=== PATIENT | male | born 1970 | race Caucasian/White ===

== ENCOUNTER 2019-08-01 07:55 | Day surgery (SDC) | payer OTHER ==
[~2019-08-01] VITALS: Ht 185.4 cm; Wt 104.3 kg
[2019-08-01] MEDS ORDERED: HYDROCODON-ACE1 EA10 PO (09:36)
--- NOTE | 2019-08-01 09:58 | NUR ---
08/01/19 0958 Margy Yuan 0940- PT ARRIVES TO PACU EASILY AROUSABLE TO VERBAL STIMULI. RESP EVEN AND UNLABORED. OXYGEN SAT HIGH 90'S TO 100% ON 6L VIA MASK. PT REPORTS NO PAIN OR NAUSEA. 0948- OXYGEN TITRATED OFF. 0956- PT GIVEN ICE WATER PER HIS REQUEST. PT TOLERATING WELL. ICE PACK APPLIED TO PT'S RIGHT WRIST.
--- NOTE | 2019-08-01 10:30 | OR ---
[facility] [address] [place], [place] [address] Signed DATE OF OPERATION: 08/01/2019 SURGEON: Phil Vega MD PREOPERATIVE DIAGNOSIS: Right carpal tunnel syndrome. POSTOPERATIVE DIAGNOSIS: Right carpal tunnel syndrome. PROCEDURE PERFORMED: Right carpal tunnel release. ASSISTANT SALES DIRECTOR: None. ANESTHESIA: [place] block. TOURNIQUET TIME: 20 minutes. BRIEF HISTORY: Hermann is a 49-year-old gentleman with pain and numbness in his hand and nerve conduction studies consistent with significant carpal tunnel. Risks and benefits of operative versus nonoperative treatment were discussed with him and he elected to proceed with surgery. Once consent was obtained, he was taken to the operating room and after adequate anesthesia, he was placed on the operating room table. All downside pressure points were well padded. The right arm was prepped and draped in a standard sterile fashion. The carpal tunnel was approached through a 1.5 cm incision in the distal wrist crease, carried through skin and subcutaneous tissue. Palmaris longus was identified, retracted and protected. The transverse carpal ligament was then identified under loupe magnification. It was dissected free of overlying soft tissue proximally and distally. It was then released using a tenotomy scissors approximately 1 cm distally to the distal extent under direct loupe magnification. The canal was then palpated using the [place] and found to be completely released. The wound was copiously irrigated with solution with normal saline, and closed using 3-0 nylon. Injected 4 mL of 0.25% plain Marcaine at the end of the procedure. Wound was dressed with bacitracin, Adaptic, 4 x 8s, and gauze. He tolerated the procedure well. All sponge, needle, and instrument counts were correct. Electronically Signed By: PHIL VEGA MD 08/01/19 1030 PATIENT NAME: HERMANN MARCUM OPERATIVE REPORT DATE OF : 68 REPORT #: [id number] PHYSICIAN: PHIL VEGA MD PCP: QUENTIN SULLIVAN MD REPORT IS CONFIDENTIAL AND NOT TO BE RELEASED WITHOUT AUTHORIZATION [address] [place], [place] [address] Signed Phil Vega MD BA/MODL /[id number] Copies: ~ Electronically Signed By: PHIL VEGA MD 08/01/19 1030 PATIENT NAME: HERMANN MARCUM OPERATIVE REPORT DATE OF : 68 REPORT #: [id number] PHYSICIAN: PHIL VEGA MD PCP: QUENTIN SULLIVAN MD REPORT IS CONFIDENTIAL AND NOT TO BE RELEASED WITHOUT AUTHORIZATION
== END 2019-08-01 10:30 | disposition home or self-care (01) ==
LOC: DS 07:55
PROVIDERS: Specialist
PROC: 01N50ZZ Release Median Nerve, Open Approach (ICD-10-PCS; principal; 2019-08-01 09:00)
DX: G56.01 Carpal tunnel syndrome, right upper limb (principal)
CPT/HCPCS: 01810; J0690; J1100; J1885; J2250; J2405; J2704; J2765; J3010; J7121

== ENCOUNTER 2024-02-20 05:43 | Day surgery (SDC) | payer OTHER ==
[2024-02-13 11:26] VITALS: BP 150/90
[~2024-02-20] VITALS: Ht 185.4 cm; Wt 104.5 kg
[~2024-02-20 05:43] MED LIST: DOXYCYCLINE HY100 MG PO; HYDROCODON-ACE1 EA10 PO; LACTATED RINGER'S 1,000 ML IV SCH
[2024-02-20 05:56] VITALS: BP 142/94
[2024-02-20] MEDS ORDERED: DEXAMETHASONE SOD PHOS 4 MG/ML VIAL ONE ×2 (06:17→06:44)
[2024-02-20] MEDS ORDERED: fentaNYL citrate 100 MCG/2 ML VIAL ONE (06:44)
[2024-02-20] MEDS ORDERED: FAMOTIDINE 20 MG/ 2 ML VIAL ONE (06:44)
[2024-02-20] MEDS ORDERED: MIDAZOLAM HCL 2 MG/2 ML VIAL ONE (06:44)
[2024-02-20] MEDS ORDERED: LACTATED RINGER'S 1,000 ML IV ONE (06:44)
[2024-02-20] MEDS ORDERED: KETOROLAC TROMETHAMINE 30 MG/ML VIAL ONE (06:44)
[2024-02-20] MEDS ORDERED: ondansetron HCL 4 MG/2 ML VIAL ONE (06:44)
[2024-02-20] MEDS ORDERED: METOCLOPRAMIDE HCL 10 MG/2 ML SDV ONE (06:44)
[2024-02-20] MEDS ORDERED: propofoL 200 MG/20 ML VIAL ONE (06:44)
[2024-02-20] MEDS ORDERED: LIDOCAINE HCL 1% 5 ML SDV INJ ONE (07:00)
[2024-02-20] MEDS ORDERED: IBLOOD GLUCOSE TEST STRIP 1 EA TEST VI PRN ×2 (07:00→07:45)
[2024-02-20] MEDS ORDERED: CEFAZOLIN SODIUM 1 GM/10 ML SYR IV SCH (07:00)
[2024-02-20] MEDS ORDERED: PROCHLORPERAZINE EDISYLATE 10 MG/2 ML VIAL IV PRN (07:45)
[2024-02-20] MEDS ORDERED: fentaNYL citrate 50 MCG/ML SDV IV PRN (07:45)
[2024-02-20] MEDS ORDERED: droPERidol 5 MG/2 ML VIAL IV PRN (07:45)
[2024-02-20] MEDS ORDERED: MORPHINE SULFATE 10 MG/ML VIAL IV PRN (07:45)
[2024-02-20] MEDS ORDERED: NALOXONE HCL 0.4 MG SYR IV PRN (07:45)
[2024-02-20] MEDS ORDERED: ondansetron HCL 4 MG/2 ML VIAL IV PRN (07:45)
[2024-02-20] MEDS ORDERED: METOCLOPRAMIDE HCL 10 MG/2 ML SDV IV PRN (07:45)
[2024-02-20 08:32] VITALS: BP 129/81
--- NOTE | 2024-03-20 16:30 | OR ---
[facility] [address] [place], [place] [address] Signed DATE OF OPERATION: 02/20/2024 SURGEON: Nathaly See DPM PREOPERATIVE DIAGNOSIS: Exostosis formation at the first metatarsocuneiform joint. POSTOPERATIVE DIAGNOSIS: Exostosis formation at the first metatarsocuneiform joint. PROCEDURE: Cheilectomy with removal of exostosis first metatarsocuneiform right foot. SOLAR ENERGY ADVISOR: Bob Soares DPM NURSE CUSTOMER SOLUTIONS COORDINATOR: Willian Chan ANESTHESIA: Local with MAC consisting of 10 mL of 1:1 mixture of 2% lidocaine plain and 0.5% ropivacaine plain. ESTIMATED BLOOD LOSS: Less than 2 mL or minimal. HEMOSTASIS: With an ankle tourniquet. MATERIALS UTILIZED: Bone wax, 3-0 Vicryl, 4-0 Vicryl and 5-0 nylon. PROCEDURE IN DETAIL: The patient was brought into the operating room and placed upon the operating table in the supine position. Following IV sedation, local anesthesia was administered about the patient's right medial foot. The right foot was then scrubbed, prepped and draped in usual sterile technique. An Esmarch was utilized to exsanguinate the patient's right foot and then it was left wrapped around the ankle to act as a tourniquet. Attention was then directed to the dorsal and medial aspect of the patient's right first metatarsocuneiform joint where approximately 5 cm semi-curved incision was performed Electronically Signed By: NATHALY SEE DPM 03/20/24 1630 PATIENT NAME: HERMANN MARCUM OPERATIVE REPORT DATE OF : 68 REPORT #: [id number] PHYSICIAN: NATHALY SEE DPM PCP: Racquel DEL ANGEL REPORT IS CONFIDENTIAL AND NOT TO BE RELEASED WITHOUT AUTHORIZATION [facility] [address] [place], [place] [address] Signed medial to the extensor hallucis longus tendon. Incision was then deepened through the subcutaneous tissues with care being taken to identify and retract the vital neurovascular structures. Bleeders were cauterized and ligated as necessary. Careful dissection down to the deep fascia was then performed with #64 Lucas blade. Joint capsule was incised and then it reflected medially and laterally to reveal dorsomedial exostosis at the first metatarsocuneiform joint. Curved osteotomes were then utilized to remove the exostosis on both the cuneiform and the metatarsal base regions. A bone wrap was then used to smooth the surrounding integument. Retractors were utilized to retract soft tissue structures including extensor tendon away from the osteotomy area. The area was then flushed with copious amounts of sterile normal saline. Mild hypertrophic soft tissue formation was noted in this area, however, debridement was not opted for integrity to occur upon healing to hopefully help prevent recurrence. Deep fascia was then reapproximated and coapted utilizing 3-0 Vicryl, subcutaneous tissue was reapproximated and coapted utilizing 4-0 Vicryl. Integument was reapproximated and coapted utilizing 5-0 nylon in the continuous interlocking suture technique. Postoperative injection consisting of 1 mL of dexamethasone phosphate and 5 mL of 0.5% ropivacaine was injected about the surgical site and first metatarsal base region. Surgical site was then dressed with silver foam dressing, fluff gauze, rolled gauze and Coban. The ankle tourniquet was removed and prompt hyperemic response was noted to all digits of the patient's right foot. The patient was then escorted to the recovery area by Anesthesia with vital signs stable. The patient had tolerated both procedures and the anesthesia well and following the period of postoperative monitoring, the patient was discharged to home with both written and oral instructions. SISSY Canchola/JOSEL /[id number] Copies: ~ Electronically Signed By: NATHALY SEE DPM 03/20/24 1630 PATIENT NAME: HERMANN MARCUM OPERATIVE REPORT DATE OF : 68 REPORT #: [id number] PHYSICIAN: NATHALY SEE DPM PCP: Racquel DEL ANGEL REPORT IS CONFIDENTIAL AND NOT TO BE RELEASED WITHOUT AUTHORIZATION
== END 2024-02-20 08:40 | disposition home or self-care (01) ==
LOC: OPS 05:43 → DS 05:43 → OPS 07:00 → DS 07:00 → OPS 08:40
PROVIDERS: ATTEND Podiatrist Foot & Ankle Surgery
PROC: 0SRM0JZ Replacement of Right Metatarsal-Phalangeal Joint with Synthetic Substitute, Open Approach (ICD-10-PCS; 2024-02-20)
PROC: 0QBN0ZZ Excision of Right Metatarsal, Open Approach (ICD-10-PCS; principal; 2024-02-20 07:00)
DX: M89.8X7 Other specified disorders of bone, ankle and foot (principal)
CPT/HCPCS: 01480; 73630; J0690; J1100; J1885; J2250; J2405; J2704; J2765; J3010; J7121